=== PATIENT | female | born 1950 | race Caucasian/White ===

== ENCOUNTER 2018-01-01 17:08 | Emergency (ER) | payer OTHER ==
[~2018-01-01] VITALS: Ht 152.4 cm; Wt 82.5 kg
[2018-01-01 17:12] VITALS: Ht 152.4 cm; Wt 82.5 kg
[2018-01-01 18:35] VITALS: BP 155/80
== END 2018-01-01 18:35 | disposition home or self-care (01) ==
LOC: ED 17:08
DX: B37.3 Candidiasis of vulva and vagina (principal); I10 Essential (primary) hypertension; E11.9 Type 2 diabetes mellitus without complications

== ENCOUNTER 2019-02-15 12:35 | Emergency (ER) | payer OTHER ==
[~2019-02-15] VITALS: Ht 149.9 cm; Wt 74.4 kg
[2019-02-15 12:53] VITALS: Ht 149.9 cm; Wt 74.4 kg
[2019-02-15 15:08] LABS: UA SPECIFIC GRAVITY <=1.005 (1.005-1.035); microscopic required? YES; urine erythrocyte TRACE (NEGATIVE)
[2019-02-15 15:24] LABS: BASOPHIL % 0.4 % (0-2); PLATELET COUNT 296 x10^3mcL (130-400); RED CELL DISTRIBUTION WIDTH 13.2 % (11.5-14.5)
[2019-02-15 15:35] LABS: CALCIUM 9.7 mg/dL (8.5-10.1); CARBON DIOXIDE 26.5 mmol/L (21-32); CHLORIDE SERUM 90 mmol/L (98-107); CREATININE SERUM 0.6 mg/dL (0.6-1.0); GFR1 > 60 mL/min; GLUCOSE SERUM 102 mg/dL (74-106); POTASSIUM SERUM 3.4 mmol/L (3.5-5.1); SODIUM SERUM 126 mmol/L (136-145)
[2019-02-15 15:42] LABS: ALBUMIN 3.7 g/dL (3.4-5.0); ALKALINE PHOSPHATASE 81 U/L (46-116); ALT/SGPT 29 U/L (14-59); AMYLASE 69 U/L (25-115); AST/SGOT 18 U/L (15-37); BILIRUBIN TOTAL 0.48 mg/dL (0.20-1.00); LIPASE 167 IU/L (73-393); TOTAL PROTEIN, SERUM 7.5 g/dL (6.4-8.2)
[2019-02-15 18:15] VITALS: BP 114/64
== END 2019-02-15 18:15 | disposition home or self-care (01) ==
LOC: ED 12:35
PROVIDERS: Emergency Medicine
DX: N81.10 Cystocele, unspecified (principal); N39.0 Urinary tract infection, site not specified; I10 Essential (primary) hypertension; E11.9 Type 2 diabetes mellitus without complications
CPT/HCPCS: 36415; J1885

== ENCOUNTER 2019-02-18 08:09 | Inpatient (IN) | payer OTHER ==
[~2019-02-18] VITALS: Ht 152.4 cm; Wt 71.4 kg
[2019-02-18 08:12] VITALS: Ht 152.4 cm; Wt 71.4 kg
--- NOTE | 2019-02-18 08:32 | NUR ---
PT BROUGHT IN BY [facility] WITH C/O GENERALIZED WEAKNESS, SYNCOPAL EPISODE, NAUSEA AND VOMITING. PER PT SHE HAS NOT BEEN FEELING GOOD SINCE SHE BEGAN TAKING ANTIBITOIC FOR UTI. PT DENIES CP OR SOB. AT BEDSIDE PT IS AAOX4. RESPS E/U. SKIN IS PINK AND WARM. PT PLACED ON MONITOR BED RAIL UP X1 FOR SAFETY. PT ORIENTED TO ROOM, USE OF CALL CONTRERAS, AND BED IN LOWEST POSITION. PT CALM AND COOPERATIVE. PT AMBULATED FROM GURNEY TO BED WITH STEADY GAIT. NO C/O DIARRHEA OR FEVER. PT SPEAKING IN FULL SENTENCES. PT ABLE TO MOVE ALL 4 EXTREMITIES. MSE COMPLETED BY DR. WALLACE.
[2019-02-18 08:53] LABS: BASOPHIL % 0.3 % (0-2); PLATELET COUNT 314 x10^3mcL (130-400); RED CELL DISTRIBUTION WIDTH 13.1 % (11.5-14.5)
[2019-02-18 09:08] LABS: ALBUMIN 3.7 g/dL (3.4-5.0); ALKALINE PHOSPHATASE 75 U/L (46-116); ALT/SGPT 32 U/L (14-59); AST/SGOT 22 U/L (15-37); BILIRUBIN TOTAL 0.69 mg/dL (0.20-1.00); CALCIUM 9.5 mg/dL (8.5-10.1); CARBON DIOXIDE 24.9 mmol/L (21-32); CHLORIDE SERUM 82 mmol/L (98-107); CREATININE SERUM 0.8 mg/dL (0.6-1.0); GFR1 > 60 mL/min; GLUCOSE SERUM 170 mg/dL (74-106); TOTAL PROTEIN, SERUM 7.5 g/dL (6.4-8.2)
[2019-02-18 09:15] LABS: POTASSIUM SERUM 2.5 mmol/L (3.5-5.1); SODIUM SERUM 120 mmol/L (136-145)
--- NOTE | 2019-02-18 09:38 | NUR ---
DR. SANTAMARIA MADE AWARE OF PT'S K+. NEW ORDERS IN PLACE. PT VERBALIZES UNDERSTANDING OF MEDICAITON. SEE EMAR FOR DETAILS. HR=70 SP02=99% ON RA RR=14
--- NOTE | 2019-02-18 09:40 | NUR ---
PT DOES NOT KNOW HOME MEDS AND SHE DID NOT BRING THEM.
--- NOTE | 2019-02-18 10:04 | NUR ---
PT RESTING IN A POSITION OF COMFORFT. PT AAOX4. RESPS EVEN AND UNLABORED. CALL LIGHT WITHIN REACH. BED IN LOW POSITION WITH SIDE RAILS UP X2. APPEARS TO BE NO DISTRESS AT THIS TIME. NO CHANGE IN PT STATUS. WILL CONITINUE TO MONITOR. IS NOW AT BEDSIDE.
[2019-02-18] MEDS ORDERED: GOOD SENSE ASPI81 M3 PO (10:05)
[2019-02-18] MEDS ORDERED: ATORVASTATIN CA40 M1 PO (10:06)
[2019-02-18] MEDS ORDERED: BACTRIM DS1 TAB PO (10:06)
[2019-02-18] MEDS ORDERED: HYDROCHLOROTHIA50 MG PO (10:06)
[2019-02-18] MEDS ORDERED: ATENOLOL25 MG PO (10:07)
[2019-02-18] MEDS ORDERED: JANUMET 50-1,01 EACH PO (10:07)
--- NOTE | 2019-02-18 10:57 | NUR ---
REPORT HAND-OFF TO TATIANA MEJIA
--- NOTE | 2019-02-18 11:20 | NUR ---
RECEIVED PT FROM ED WITH CC N/V, GEN WEAKNESS, AND SYNCOPE. PER PT, SHE IS UNABLE TO RECALL WHAT HAPPENED PRIOR TO SYNCOPAL EPISODE BUT WAS ASSISTED SLOWLY TO THE GROUND BY FAMILY MEMBERS. PT ALSO REPORTS THAT SINCE STARTING ANTIBIOTICS LAST MONDAY, SHE HAD N/V, POOR APPETITE, AND GEN WEAKNESS. PT IS AAOX4. C/O MILD DIZZINESS AT THIS TIME. SEIZURE PRECAUTIONS IN PLACE. RESP EVEN AND UNLABORED ON RA. C/O CONSTIPATION, LAST BM 02/15/19. PT STATES HER CONSTIPATION IS DUE TO POOR APPETITE. VOIDING FREELY, REPORTS URINARY FREQUENCY. AMBULATORY WITH CANE. IV TO RAC, NO REDNESS OR SWELLING TO IV SITE. HOB ELEVATED. ORIENTED TO ROOM AND SURROUNDINGS. FAMILY MEMBERS AT BEDSIDE. BED IN LOW POSITION, CALL LIGHT WITHIN REACH. FALL PRECAUTIONS IN PLACE. WILL CONTINUE TO MONITOR.
[2019-02-18 12:31] VITALS: BP 118/43
[2019-02-18 12:42] LABS: microscopic required? NO
[2019-02-18 12:59] LABS: UA SPECIFIC GRAVITY <=1.005 (1.005-1.035); urine erythrocyte NEGATIVE (NEGATIVE)
--- NOTE | 2019-02-18 16:36 | NUR ---
PT SITTING UP IN BED WATCHING TV. NO ACUTE DISTRESS. DENIES DIZZINESS OR N/V. IVF INFUSING, NO REDNESS OR SWELLING. CALL LIGHT WITHIN REACH. FALL PRECAUTIONS. WILL CONTINUE TO MONITOR.
--- NOTE | 2019-02-18 18:48 | NUR ---
PT RESTING IN BED. NO ACUTE DISTRESS. AAOX4. NO C/O DIZZINESS AT THIS TIME. RESP EVEN AND UNLABORED ON RA. IVF INFUSING, NO REDNESS OR SWELLING NOTED. HOB SLIGHTLY ELEVATED. FALL PRECAUTIONS IN PLACE. BED IN LOW POSITION, CALL LIGHT WITHIN REACH. WILL ENDORSE TO ONCOMING SHIFT.
--- NOTE | 2019-02-18 19:05 | NUR ---
RECEIVED REPORT FROM RANDELL SIMPSON. ASSUMING ALL CARE
--- NOTE | 2019-02-18 19:20 | NUR ---
RECEIVED PT LAYING IN BED. PT IS A/OX4. SPEECH IS CLEAR. ABLE TO MAKE NEEDS KNOWN. GCS=15. SEIZURE PRECATIONS IN PLACE. ENT FREE OF DISCHARGE. ORAL MUCOSA PINK AND MOIST. NO JVD NOTED. BREATHING IS E/U ON RA. LUNGS SOUND CLEAR BILAT. SYMMETRICAL CHEST EXPANSION NOTED. S1/S2 HEART SOUNDS AUSCULTATED. CHEST WALL EQUAL AND SYMMETRICAL. DENIES CP. PT ON TELE # [address] PALPABLE PULSES X4 EXTREMITIES. SKIN IS WARM AND DRY. NO EDEMA NOTED. RAC IV IN PLACE INFUSING NS @ 80 ML/HR. GEN WEAKNESS. NO JOINT SWELLING/DEFORMITY NOTED. FULL ACTIVE ROM X4 EXTREMITIES. PT ON CCHO DIET. DENIES ANY N/V. ABD IS SOFT, ROUND, NONTENDER TO PALPATION. BOWEL SOUNDS ACTIVE X4 QUADRANTS. NO BM NOTED. PT VOIDS FREELY, STS SHE HAS URINARY FREQUENCY. SKIN IS INTACT. UMBILICAL HERNIA NOTED. PT ABLE TO REPOSITION SELF INDEPENDENTLY. PT IS CALM AND COOPERATIVE. BED IN LOW POSITION. CALL LIGHT IN REACH. WILL CONT TO MONITOR
[2019-02-18 20:03] VITALS: BP 110/58
--- NOTE | 2019-02-18 21:05 | NUR ---
PT AMBULATED TO THE RESTROOM WITH A STEADY GAIT.
--- NOTE | 2019-02-19 00:05 | NUR ---
PT IS SLEEPING, EASILY AROUSABLE. RISE AND FALL OF CHEST NOTED. BREAHTING IS E/U ON RA. NO S/S OF ACUTE DISTRESS NOTED. NS INFUSING @ 80 ML/HR. NO S/S OF INFILTRATION NOTED. BED IN LOW POSITION. CALL LIGHT IN REACH. WILL CONT TO MONITOR
--- NOTE | 2019-02-19 02:55 | NUR ---
REPORT GIVEN TO LENARD SIMPSON FOR CONTINUITY OF CARE. PT IS SLEEPING, EASILY AROUSABLE. BREATHING IS E/U ON RA. NO S/S OF ACUTE DISTRESS NOTED. NS INFUSING @ 80 ML/HR WITH NO S/S OF INFILTRATION NOTED. BED IN LOW POSITION. CALL LIGHT IN REACH.
--- NOTE | 2019-02-19 03:08 | NUR ---
RECIEVED REPORT FROM KATHERIN SIMPSON. PT IN NO ACUTE DISTRESS. RESTING WITH EYES CLOSED. BREATHING E/U ON RA. WILL ASSUME CARE.
[2019-02-19 05:22] VITALS: BP 110/54
--- NOTE | 2019-02-19 06:09 | NUR ---
NO ACUTE DISTRESS NOTED. NO ACUTE CHANGES. WILL ENDORSE TO ONCOMING RN.
[2019-02-19 06:12] LABS: BASOPHIL % 0.1 % (0-2); PLATELET COUNT 284 x10^3mcL (130-400); RED CELL DISTRIBUTION WIDTH 13.3 % (11.5-14.5)
[2019-02-19 06:26] LABS: CALCIUM 8.9 mg/dL (8.5-10.1); CARBON DIOXIDE 25.4 mmol/L (21-32); CHLORIDE SERUM 101 mmol/L (98-107); CREATININE SERUM 0.6 mg/dL (0.6-1.0); GFR1 > 60 mL/min; GLUCOSE SERUM 111 mg/dL (74-106); POTASSIUM SERUM 3.7 mmol/L (3.5-5.1); SODIUM SERUM 137 mmol/L (136-145)
[2019-02-19 06:44] LABS: FREE T4 1.15 ng/dL (0.76-1.46); FREE THYROXINE INDEX 2.4 ug/dL (1.4-4.5); T4(THYROXINE) 7.6 ug/dL (4.7-13.3)
--- NOTE | 2019-02-19 07:45 | NUR ---
AWAKE,ALERT AND ABLE TO VERBALIZED NEEDS,CALL LIGHT W/ IN REACH,STILL COMPLAINING OF SLIGHT BURNING AND FREQUENT URINATION.ABLE TO AMBULATE THE BATHROOM W/ ASSIST.NO ACUTE RESP. DISTRESS NOTED.WILL CONT. PLAN OF CARE.
[2019-02-19 08:09] VITALS: BP 124/73
--- NOTE | 2019-02-19 12:00 | NUR ---
PT. AMBULATED IN THE BATHROOM KIRAN. WELL NO ACUTE DISTRESS NOTED.
[2019-02-19 12:10] VITALS: BP 127/60
[2019-02-19 12:25] LABS: T3 TOTAL 0.79 ng/mL
[2019-02-19] MEDS ORDERED: NOR5 PO (14:10)
--- NOTE | 2019-02-19 15:40 | NUR ---
PT. WENT HOME W/ STABLE CONDITION AMBULATORY ACC. W/ HER GRAND DAUGHTER DISCHARGED INSTRUCTIONS AND PRESCRIPTION GIVEN AND DISCUSSED TO PT/GRANDAUGHTER AND VERBALIZED UNDERSTANDING OF INSTRUCTIONS GIVEN ESCORTED BY ENERGY PROJECT ENGINEER IN THE LOBBY. NO ACUTE DISTRESS NOTED.
== END 2019-02-19 16:53 | disposition home or self-care (01) | DRG 690 ==
LOC: ED 08:09 → DU 10:12
PROVIDERS: Emergency Medicine; ADMIT Internal Medicine Pulmonary Disease
DX: N39.0 Urinary tract infection, site not specified (principal); E87.1 Hypo-osmolality and hyponatremia; E86.0 Dehydration; E87.6 Hypokalemia; R55 Syncope and collapse; E11.9 Type 2 diabetes mellitus without complications; I10 Essential (primary) hypertension; Z68.30 Body mass index [BMI] 30.0-30.9, adult; Z79.84 Long term (current) use of oral hypoglycemic drugs
CPT/HCPCS: 82962; 84439; B4164; J0696; J1644; J2405; J3480; J7030; J7050